=== PATIENT | male | born 1970 | race Caucasian/White ===

== ENCOUNTER 2017-12-31 12:01 | Inpatient (IN) | payer OTHER ==
[2017-12-31 12:38] LABS: ADD MAN DIFF? NO
[2017-12-31 12:42] LABS: BASOPHIL # 0.1 10^3/ul (0.0-0.1); EOSINOPHILS # 0.1 10^3/ul (0.0-0.5); EOSINOPHILS % 2.2 % (0.0-7.0); HEMATOCRIT 42.9 % (42.0-52.0); HEMOGLOBIN 15.2 g/dl (14.0-18.0); LYMPHOCYTES # 2.2 10^3/ul (0.8-2.9); LYMPHOCYTES % 44.2 % (15.0-51.0); MEAN CORPUSCULAR HEMOGLOBIN 30.7 pg (29.0-33.0); MEAN CORPUSCULAR HGB CONC 35.4 g/dl (32.0-37.0); MEAN CORPUSCULAR VOLUME 86.7 fl (82.0-101.0); MEAN PLATELET VOLUME 11.4 fl (7.4-10.4); MONOCYTE # 0.3 10^3/ul (0.3-0.9); MONOCYTES % 5.8 % (0.0-11.0); NEUTROPHIL # 2.3 10^3/ul (1.6-7.5); NEUTROPHILS % 45.6 % (39.0-77.0); PLATELET COUNT 154 10^3/UL (140-415); RED BLOOD COUNT 4.95 10^6/ul (4.70-6.10); RED CELL DISTRIBUTION WIDTH 11.9 % (11.5-14.5)
[2017-12-31] MEDS: ASPIRIN 81 MG TAB PO (12:46)
[2017-12-31] MEDS: SOD CHLORIDE 0.9% 1,000 ML IV (12:49)
[2017-12-31] MEDS: NITROGLYCERIN 2% 1 GM OINT PKT TD (12:49)
[2017-12-31] MEDS: NITROGLYCERIN (SL) 0.4 MG TAB SL (12:51)
[2017-12-31 13:05] LABS: ANION GAP 16 (8-16); BLOOD UREA NITROGEN 12 mg/dl (7-20); CALCIUM 9.4 mg/dl (8.4-10.2); CARBON DIOXIDE 23 mmol/L (21-31); CHLORIDE 103 mmol/L (97-110); CREATININE 0.82 mg/dl (0.61-1.24); POTASSIUM 4.3 mmol/L (3.5-5.1); SODIUM 138 mmol/L (135-144)
[2017-12-31 13:09] LABS: GLUCOSE 535 mg/dl (70-220)
[2017-12-31 13:16] LABS: TROPONIN-I < 0.012 ng/ml (0.000-0.120)
[2017-12-31] MEDS ORDERED: ACETAMINOPHEN 325 MG TAB PO ×2 (14:00→18:30)
[2017-12-31] MEDS ORDERED: ONDANSETRON 4 MG INJ IV ×2 (14:00→18:30)
[2017-12-31] MEDS ORDERED: GLUCOSE GEL 15 GRAM TUBE BUCCAL (14:30)
[2017-12-31] MEDS ORDERED: GLUCAGON 1 MG INJ IM (14:30)
[2017-12-31] MEDS ORDERED: DEXTROSE 50% 50 ML SYRINGE IV ×2 (14:30)
[2017-12-31] MEDS ORDERED: GLUCOSE GEL 15 GRAM TUBE PO ×2 (14:30)
[2017-12-31] MEDS: INSULIN ASPART [NOVOLOG] 3 ML PEN SC ×2 (15:44→21:07)
[2017-12-31] MEDS ORDERED: ZOLPIDEM 5 MG TAB PO (18:30)
[2017-12-31] MEDS ORDERED: DOCUSATE SODIUM 100 MG CAP PO (18:30)
[2017-12-31] MEDS ORDERED: morphine 2 MG INJ IV (18:30)
[2017-12-31] MEDS ORDERED: NACL 0.9% 3 ML SYG IV (18:30)
[2017-12-31] MEDS ORDERED: hydrALAzine 20 MG INJ IV (18:30)
[2017-12-31] MEDS ORDERED: HYDROCODONE/APAP (5/325) TAB PO (18:30)
[2017-12-31 19:08] LABS: CREATINE KINASE 44 IU/L (23-200)
[2017-12-31 19:19] LABS: CK INDEX 0.6; CK-MB 0.26 ng/ml (0.0-2.4)
[2017-12-31 19:22] LABS: TROPONIN-I < 0.012 ng/ml (0.000-0.120)
[2017-12-31] MEDS: LISINOPRIL 10 MG TAB PO (20:55)
[2017-12-31] MEDS: INSULIN GLARGINE [LANTus] (100 UNITS/ML) SYG SC (21:09)
[2017-12-31] MEDS: SOD CHLORIDE 0.45% 1,000 ML IV (23:59)
[2018-01-01 01:09] LABS: CREATINE KINASE 39 IU/L (23-200)
[2018-01-01 01:22] LABS: CK INDEX 0.6; CK-MB < 0.22 ng/ml (0.0-2.4); TROPONIN-I < 0.012 ng/ml (0.000-0.120)
[2018-01-01] MEDS: ACCU-CHEK XX (02:38)
[2018-01-01 06:52] LABS: ADD MAN DIFF? NO
[2018-01-01 07:08] LABS: WHITE BLOOD COUNT 7.5 10^3/ul (4.8-10.8)
[2018-01-01 07:08] LABS: BASOPHIL # 0.1 10^3/ul (0.0-0.1); BASOPHILS % 1.1 % (0.0-2.0); EOSINOPHILS # 0.1 10^3/ul (0.0-0.5); EOSINOPHILS % 1.9 % (0.0-7.0); HEMATOCRIT 39.1 % (42.0-52.0); HEMOGLOBIN 13.6 g/dl (14.0-18.0); LYMPHOCYTES # 2.8 10^3/ul (0.8-2.9); MEAN CORPUSCULAR HEMOGLOBIN 30.5 pg (29.0-33.0); MEAN CORPUSCULAR HGB CONC 34.8 g/dl (32.0-37.0); MEAN CORPUSCULAR VOLUME 87.7 fl (82.0-101.0); MEAN PLATELET VOLUME 11.6 fl (7.4-10.4); MONOCYTE # 0.4 10^3/ul (0.3-0.9); MONOCYTES % 5.9 % (0.0-11.0); NEUTROPHIL # 4.1 10^3/ul (1.6-7.5); NEUTROPHILS % 53.8 % (39.0-77.0); PLATELET COUNT 139 10^3/UL (140-415); POSITIVE DIFF @See below; RED BLOOD COUNT 4.46 10^6/ul (4.70-6.10); RED CELL DISTRIBUTION WIDTH 12.3 % (11.5-14.5)
[2018-01-01 07:12] LABS: HEMOGLOBIN A1C 12.6 % (0-5.9)
[2018-01-01 07:18] LABS: ANION GAP 10 (8-16); BLOOD UREA NITROGEN 13 mg/dl (7-20); CALCIUM 9.1 mg/dl (8.4-10.2); CARBON DIOXIDE 27 mmol/L (21-31); CHLORIDE 106 mmol/L (97-110); CREATININE 0.63 mg/dl (0.61-1.24); GLUCOSE 211 mg/dl (70-220); PHOSPHORUS 3.4 mg/dl (2.5-4.9); POTASSIUM 3.5 mmol/L (3.5-5.1); SODIUM 139 mmol/L (135-144)
[2018-01-01] MEDS: INSULIN ASPART [NOVOLOG] 3 ML PEN SC ×4 (08:35→12:35)
[2018-01-01] MEDS ORDERED: ENOXAPARIN 40 MG/0.4 ML SYG SC (09:00)
[2018-01-01] MEDS: LISINOPRIL 10 MG TAB PO (12:38)
== END 2018-01-01 14:30 | disposition home or self-care (01) | DRG 639 ==
LOC: E/R 12:01 → TEL 13:58
DX: E11.65 Type 2 diabetes mellitus with hyperglycemia (principal); I16.0 Hypertensive urgency; E66.01 Morbid (severe) obesity due to excess calories; Z68.32 Body mass index [BMI] 32.0-32.9, adult
CPT/HCPCS: 36415; 71045; 80048; 82550; 82553; 82962; 83036; 83735; 84100; 84484; 85025; 93005; 99291-25